=== PATIENT | female | born 1985 | race Two or more races ===

== ENCOUNTER 2022-05-30 11:03 | Emergency (ER) | payer OTHER, MEDICAID ==
[2022-05-30] MEDS ORDERED: Ketorolac 30 MG/ML SDV IVPUSH STA (11:05)
[2022-05-30] MEDS ORDERED: Morphine 4 MG/ML VIAL IVPUSH STA (11:05)
[2022-05-30] MEDS ORDERED: Sodium Chloride 0.9% 10 ML Syringe FLUSH PRN (11:05)
[2022-05-30] MEDS ORDERED: LORazepam 2 MG/ML SDV IVPUSH STA (11:05)
[2022-05-30] MEDS ORDERED: Ketorolac 30 MG/ML SDV ONE (11:07)
[2022-05-30] MEDS ORDERED: Morphine 4 MG/ML VIAL ONE (11:07)
[2022-05-30] MEDS ORDERED: LORazepam 2 MG/ML SDV ONE (11:08)
[2022-05-30] MEDS ORDERED: Cyclobenzaprine 10 MG Tab PO ONE (11:13)
[2022-05-30 11:55] LABS: ESTIMATED GFR 114 mL/min (>60)
== END 2022-05-30 14:20 | disposition home or self-care (01) ==
LOC: FB.ED 11:03
DX: S39.012A Strain of muscle, fascia and tendon of lower back, initial encounter (principal); N39.0 Urinary tract infection, site not specified; Z20.822 Contact with and (suspected) exposure to COVID-19; V49.40XA Driver injured in collision with unspecified motor vehicles in traffic accident, initial encounter; Y92.410 Unspecified street and highway as the place of occurrence of the external cause
CPT/HCPCS: 36415; 71045; 72072; 72100; 80053; 81001; 83605; 85025; 86140; 87086; 96374; 96375; 99282; 99284-25; A9270-GY; J1885; J2060; J2270; U0002

== ENCOUNTER 2022-06-03 15:32 | Emergency (ER) | payer MEDICAID ==
[2022-06-03] MEDS ORDERED: predniSONE 10 MG Tab PO ONE (15:33)
[2022-06-03] MEDS ORDERED: Acetaminophen 500 MG Tab PO ONE (16:05)
[2022-06-03] MEDS ORDERED: Lidocaine 4% 1 each Patch TOP SCH (16:30)
[2022-06-03] MEDS ORDERED: oxyCODONE 5 MG Tab PO ONE (17:28)
[2022-06-03] MEDS ORDERED: predniSONE 20 MG Tab PO ONE (17:32)
== END 2022-06-03 17:50 | disposition home or self-care (01) ==
LOC: FB.ED 15:32
DX: R07.2 Precordial pain (principal); R79.82 Elevated C-reactive protein (CRP); Z79.899 Other long term (current) drug therapy
CPT/HCPCS: 36415; 71120; 86140; 93005; 99285; A9270-GY; J7512

== ENCOUNTER 2022-06-06 10:35 | Inpatient (IN) | payer MEDICAID ==
[2022-06-06] MEDS ORDERED: Ondansetron 4 MG/2 ML SDV IVPUSH ONE (11:28)
[2022-06-06] MEDS ORDERED: Sodium Chloride 0.9% 1,000 ML IV ONE (11:31)
[2022-06-06] MEDS ORDERED: HYDROmorphone 2 MG/ML SDV IM ONE ×2 (11:49→14:28)
[2022-06-06] MEDS ORDERED: Lidocaine 4% 1 each Patch TOP PRN (11:54)
[2022-06-06] MEDS: HYDROmorphone 2 MG/ML SDV IVPUSH ONE ×2 (11:58→15:04)
[2022-06-06 12:10] LABS: ESTIMATED GFR 97 mL/min (>60)
[2022-06-06] MEDS ORDERED: Iopamidol 755 Mg/ML 100 ML Bottle IV ONE (14:25)
[2022-06-06] MEDS: Iopamidol 755 Mg/ML 100 ML Bottle IV ONE ×2 (16:42)
[2022-06-06] MEDS ORDERED: LORazepam 2 MG/ML SDV IVPUSH ONE (17:56)
[2022-06-06] MEDS ORDERED: Ketorolac 30 MG/ML SDV IVPUSH ONE (17:56)
[2022-06-06] MEDS ORDERED: methylPREDNISolone Sodium Succinate 125 MG/2 ML SDV IVPUSH ONE (17:56)
[2022-06-06] MEDS ORDERED: Sodium Chloride 0.9% 1,000 ML IV SCH (18:30)
[2022-06-06] MEDS ORDERED: Zolpidem 5 MG Tab PO PRN (18:51)
[2022-06-06] MEDS: Acetaminophen 500 MG Tab PO SCH (20:23)
[2022-06-06] MEDS: Saccharomyces Boulardii (Probiotic) 250 MG Cap PO SCH (20:24)
[2022-06-06] MEDS: Enoxaparin 40 MG/0.4 ML Syringe SUBCUT SCH (20:27)
[2022-06-06] MEDS: Pantoprazole 40 MG Vial IVPUSH SCH (20:33)
[2022-06-06] MEDS: cefTRIAXone 1 GM Vial IVPUSH SCH (20:35)
[2022-06-06] MEDS ORDERED: VANCOmycin 2 GM/400 ML 2 GM in Premix Bag 1 BAG IV ONE (21:00)
[2022-06-06] MEDS: HYDROmorphone 2 MG/ML SDV IVPUSH PRN (21:51)
[2022-06-06] MEDS: methylPREDNISolone Sodium Succinate 125 MG/2 ML SDV IVPUSH SCH (23:18)
[2022-06-07] MEDS ORDERED: Ketorolac 30 MG/ML SDV IM SCH
[2022-06-07] MEDS: Ketorolac 30 MG/ML SDV IVPUSH PRN ×3 (00:08→18:52)
[2022-06-07] MEDS: Acetaminophen 500 MG Tab PO SCH ×4 (00:37→18:09)
[2022-06-07] MEDS: Sodium Chloride 0.9% 1,000 ML IV SCH ×3 (01:45→23:16)
[2022-06-07] MEDS: methylPREDNISolone Sodium Succinate 125 MG/2 ML SDV IVPUSH SCH ×3 (06:19→18:10)
[2022-06-07] MEDS: Heparin Sodium 10 Units/ML 5 ML Syringe FLUSH PRN ×2 (06:25→12:24)
[2022-06-07] MEDS: Sodium Chloride 0.9% 10 ML Syringe FLUSH PRN ×2 (06:25→12:24)
[2022-06-07] MEDS: HYDROmorphone 2 MG/ML SDV IVPUSH PRN ×4 (06:30→20:48)
[2022-06-07 06:48] LABS: ESTIMATED GFR 114 mL/min (>60)
[2022-06-07] MEDS: Saccharomyces Boulardii (Probiotic) 250 MG Cap PO SCH ×2 (08:26→20:52)
[2022-06-07] MEDS: Pantoprazole 40 MG Vial IVPUSH SCH ×3 (08:26→20:51)
[2022-06-07] MEDS: VANCOmycin 1.25 GM/250 ML 1.25 GM in Premix Bag 1 BAG IV SCH ×2 (09:46→21:05)
[2022-06-07] MEDS ORDERED: VANCOmycin 1 GM/200 ML 1 GM in Premix Bag 1 BAG IV SCH (11:00)
[2022-06-07] MEDS: Polyvinyl Alcohol 1.4% Ophth Soln 15 ML Bottle EYEBOTH PRN (16:22)
[2022-06-07] MEDS: Enoxaparin 40 MG/0.4 ML Syringe SUBCUT SCH (20:49)
[2022-06-07] MEDS: cefTRIAXone 1 GM Vial IVPUSH SCH (20:50)
[2022-06-08] MEDS: HYDROmorphone 2 MG/ML SDV IVPUSH PRN ×3 (00:53→17:01)
[2022-06-08] MEDS: methylPREDNISolone Sodium Succinate 125 MG/2 ML SDV IVPUSH SCH ×2 (00:54→05:26)
[2022-06-08] MEDS: Acetaminophen 500 MG Tab PO SCH ×4 (01:05→18:37)
[2022-06-08] MEDS: Sodium Chloride 0.9% 10 ML Syringe FLUSH PRN ×5 (06:45→20:49)
[2022-06-08 07:24] LABS: ESTIMATED GFR 118 mL/min (>60)
[2022-06-08] MEDS ORDERED: Heparin Sodium 10 Units/ML 5 ML Syringe FLUSH SCH (09:00)
[2022-06-08] MEDS: Pantoprazole 40 MG Vial IVPUSH SCH ×2 (09:33→20:52)
[2022-06-08] MEDS: Polyvinyl Alcohol 1.4% Ophth Soln 15 ML Bottle EYEBOTH PRN (09:39)
[2022-06-08] MEDS: Saccharomyces Boulardii (Probiotic) 250 MG Cap PO SCH ×2 (09:40→20:51)
[2022-06-08] MEDS: VANCOmycin 1.25 GM/250 ML 1.25 GM in Premix Bag 1 BAG IV SCH ×2 (09:41→21:14)
[2022-06-08] MEDS: Ketorolac 30 MG/ML SDV IVPUSH PRN ×2 (09:50→21:10)
[2022-06-08] MEDS: Heparin Sodium 10 Units/ML 5 ML Syringe FLUSH PRN ×2 (10:58→22:23)
[2022-06-08] MEDS: Enoxaparin 40 MG/0.4 ML Syringe SUBCUT SCH (20:48)
[2022-06-08] MEDS: cefTRIAXone 1 GM Vial IVPUSH SCH (20:51)
[2022-06-09] MEDS: Acetaminophen 500 MG Tab PO SCH ×3 (01:11→12:24)
[2022-06-09] MEDS: HYDROmorphone 2 MG/ML SDV IVPUSH PRN (04:13)
[2022-06-09 06:51] LABS: ESTIMATED GFR 118 mL/min (>60)
[2022-06-09] MEDS: metFORMIN 500 MG Tab.ER PO SCH ×2 (07:39→12:22)
[2022-06-09] MEDS ORDERED: methylPREDNISolone Sodium Succinate 125 MG/2 ML SDV IVPUSH SCH (09:00)
[2022-06-09] MEDS: Sodium Chloride 0.9% 10 ML Syringe FLUSH PRN ×5 (09:25→15:28)
[2022-06-09] MEDS: Pantoprazole 40 MG Vial IVPUSH SCH (09:27)
[2022-06-09] MEDS: Saccharomyces Boulardii (Probiotic) 250 MG Cap PO SCH (09:28)
[2022-06-09] MEDS: VANCOmycin 1.25 GM/250 ML 1.25 GM in Premix Bag 1 BAG IV SCH (10:00)
[2022-06-09] MEDS ORDERED: Heparin Sodium 10 Units/ML 5 ML Syringe FLUSH SCH ×2 (10:15)
[2022-06-09] MEDS: Heparin Sodium 10 Units/ML 5 ML Syringe FLUSH PRN (11:28)
[2022-06-09] MEDS: Ketorolac 30 MG/ML SDV IVPUSH PRN (15:28)
[2022-06-11 16:11] LABS: A/G RATIO 0.7 (0.7-1.7); ALBUMIN 2.4 g/dL (2.9-4.4); ALPHA-1-GLOBULIN 0.4 g/dL (0.0-0.4); ALPHA-2-GLOBULIN 0.9 g/dL (0.4-1.0); GLOBULIN, TOTAL 3.4 g/dL (2.2-3.9); M-SPIKE Not Observed g/dL (Not Observed); PROTEIN, TOTAL, SERUM 5.8 g/dL (6.0-8.5)
== END 2022-06-09 18:25 | DRG 549 ==
LOC: FB.ED 10:35 → FB.MS 18:15
PROVIDERS: ADMIT Student in an Organized Health Care Education/Training Program; ATTEND Family Medicine
DX: M00.051 Staphylococcal arthritis, right hip (principal); L03.313 Cellulitis of chest wall; Z68.41 Body mass index [BMI] 40.0-44.9, adult; F41.9 Anxiety disorder, unspecified; M47.896 Other spondylosis, lumbar region; E86.0 Dehydration; R77.8 Other specified abnormalities of plasma proteins; E88.09 Other disorders of plasma-protein metabolism, not elsewhere classified; L05.91 Pilonidal cyst without abscess; E66.01 Morbid (severe) obesity due to excess calories; B95.62 Methicillin resistant Staphylococcus aureus infection as the cause of diseases classified elsewhere; Q65.89 Other specified congenital deformities of hip
CPT/HCPCS: 36410; 36415; 71045; 71260; 74177; 76881-RT; 80048; 80053; 80202; 81001; 82550; 82947; 83605; 84165; 85025; 86140; 87040; 87077; 87186; 93306; 96361; 96372; 96374; 99285-25; A9270-GY; C8929; C9113; J0696; J1170; J1642; J1650; J1885; J2060; J2930; J3370; J3490; J7030; Q9967; U0002